=== PATIENT | male | born 1970 | race Caucasian/White ===

== ENCOUNTER → 2016-12-03 | Outpatient (CLI) | payer BC, OTHER ==
[~2016-12-03] VITALS: Ht 190.5 cm; Wt 291.1 kg
[~2016-12-03] MED LIST: ASCA500 PO; CHOLTAB3 PO
[2016-12-03 15:36] VITALS: BP 138/88; PULSE 77; Ht 190.5 cm; Wt 291.1 kg
== END | disposition home or self-care (01) ==
LOC: C.NEUR 15:10
PROVIDERS: ATTEND Internal Medicine Pulmonary Disease
DX: R06.83 Snoring (principal); R53.83 Other fatigue; R06.81 Apnea, not elsewhere classified

== ENCOUNTER → 2017-01-13 | Outpatient (CLI) | payer OTHER ==
--- NOTE | 2017-01-14 07:45 | PAP/PSG TECHNICIAN REPORT ---
[facility] Retail Performance Coach Polysomnogram Report Study name: None Report date: 01/14/2017 Study date: 01/13/2017 Referring Physician: SVETLANA QUINN M.D. Name: LILY TOMPKINS Interpreting Physician: Mohsen Robert M.D. Date of : 1970 Retail Performance Coach: JOCELYN FunezT. Sex: Male Age: 46 StudyType: PSG Weight: 291 lbs Height: 46 years, Height 6' 2" Neck Circum:18 inches BMI: 37.36 Medications: Vit-B12, Vit.D, Vit.C, Afrin nasal spray. Patient History 46 yr. old male in room 5, here for a split night sleep study. pt. states that his snoring disrupts spouse sleep. He states that he never feels rested. Patients has witnessed apnea's. Ess= 8, Neck = [address] Robert called and the order was changed to a split night study, due to patient never having a baseline study done. Parameters Monitored NPSG: E1-M2, E2-M1, Fp1-M2, Fp2-M1, F3-M2, F4-M2, F4-M1, C3-M2, C4-M2, C4-M1, O1-M2, O2-M2, O2-M1, T3-M2, T4-M1, P3-M2, P4-M1, CHIN1, CHIN2, HR, EKG, Legs, PFLOW, SNOR, FLOW, CFLOW, Tidal Volume, THOR, ABDO, SpO2, PLTH, CPRESS, ETCO2 Wave, ETCO2, pH Sleep Architecture Sleep Stages Time at Lights Off 9:40:33 PM STAGES Time (min.) TST (%) Time at Lights On 5:32:03 AM Wake 39.0 -- Total Recording Time (TRT) 472.50 min. N1 16.0 4 Total Sleep Period (TSP) 457.0 min. N2 308.0 71 Total Sleep Time (TST) 432.5min. N3 0.0 0 Awake Time 39.0 min. REM 108.5 25 Wake after Sleep Onset 24.5 min. Sleep Efficiency (SE) 92 % Sleep Onset Latency (ERA) 14.5 min. Number of Stage 1 Shifts None Awakenings 2 Stage Changes 14 Number of REM periods 3 REM 108.5 25 REM Latency 102.0 min. NREM 324.0 75 Body Position Analysis Supine Right Left Side Prone Vertical Total Sleep Time (min.) 5.6 123.9 308.6 432.50 0.0 0.4 Total Sleep Time (%) 0% 29% 71% 100 0% N/A% Total Sleep Time REM (min.) 0.0 26.0 82.5 None 0.0 0.0 Total Sleep Time NREM (min.) 0.0 97.9 226.1 None 0.0 0.0 Intermittent Wake (min.) 5.6 22.5 10.5 None 0.0 0.4 Total Sleep Period (%) 0% None None None None None Arousals Myoclonus (PLM) * Events Count Index Events Count Index Spontaneous 11 2 Events Awake (PLMW) 1 1.5 Respiratory 4 0.6 Events Asleep w/ Arousal (PLMA) 1 0.1 PLM 1 0 Events Asleep w/o Arousal (PLMS) 85 11.8 Snoring 12 2 Total Asleep 86 11.9 Total 28 4 Total 87 11 Respiratory Analysis * CA OA MA CH H RERA Total Count 0 1 0 0 52 1 53 Index 0.0 0.1 0.0 0 7.2 0 7.5 Mean Duration 0.0 11.7 0.0 0.00 22.4 11.0 22.0 Longest Duration 0.0 11.7 0.0 0.00 0.0 11.0 46.5 Respiratory Event Summary Total Supine ~Supine Right Left Prone REM NREM Apneas Count 1 N/A 1 0 1 N/A 1 0 Index 0.1 N/A 0 0.0 0.2 N/A 1 0 Hypopneas (4% Desat) Count 52 N/A 52 20 32 N/A 32 20 Index 7.2 N/A 7 9.7 6.2 N/A 17.7 3.7 Apneas & All Hypopneas Count 53 N/A 53 20 33 N/A 33 20 Index 7.4 N/A 7 10 6 N/A 18.2 3.7 Respiratory Events (Softwood Faller+All Hyp+RERA) Count 53 N/A 54 21 33 N/A 33 20 Index 7.5 N/A 7 10.2 6.4 N/A 18.2 3.9 Respiratory Related Arousal Count 4 N/A 4 3 1 N/A 4 0 Index 0.6 N/A 1 1 0 N/A 2 0 Snoring Analysis Supine Right Left Prone REM NREM Total Snore duration 153.2 min Snores count N/A 1,131 2,684 N/A 648 3,167 3,815 Snore mean duration 2.4 Sec Snores index N/A 548 522 N/A 358.3 586.5 529.2 TST with snoring (%) 35.4% SpO2 Analysis Total REM NREM Awake <50% 0.0 min. 0.0 min. 0.0 min. 0.0 min. 51 - 60% 0.0 min. 0.0 min. 0.0 min. 0.0 min. 61 - 70% 0.0 min. 0.0 min. 0.0 min. 0.0 min. 71 - 80% 0.0 min. 0.0 min. 0.0 min. 0.0 min. 81 - 90% 99.3 min. 19.3 min. 75.8 min. 4.3 min. 91 - 100% 367.0 min. 89.2 min. 248.0 min. 29.7 min. Average 92 92 91 92 Minimum SpO2 82 82 87 89 Desaturation Event Index 7.0 17.7 4.3 0.0 # Desat. Events below 89% 17 13 4 N/A Time(%) with Saturation below 89% 3.2 2.0 1.2 0.0 Time(min.) with Saturation below 89% 14.8 9.1 5.7 0.0 Heart Rate Analysis End Tidal CO2 Analysis Min (bpm) Max (bpm) Average (bpm) TSP (mins) % of TSP Awake 57 167 78 Above 55 mmHg 0.0 0.0 NREM 53 99 70 50-55 mmHg 5.9 1.4 REM 54 94 66 45-50 mmHg 426.6 98.6 Overall 53 99 69 40-45 mmHg 0.0 0.0 35-40 mmHg 0.0 0.0 30-35 mmHg 0.0 0.0 Average ETCO2 0.0 Supplemental O2 Values Minimum O2 level: None Value Start Time End Time Retail Performance Coach Comments PSG Study Mr. Tompkins slept in the right, left, positions. No cardiac arrhythmia or PLM's noted. No bruxism noted. Snoring was noted and scored as a 5 on a scale of 1 through 5. (0=no snoring, 5=snoring loud enough to be heard through a closed door or down the arias way) Mr. Tompkins awoke to use the restroom one time during the night. Mr. Tompkins stated, I did not sleep as well as I do when I am in my own bed. The final report will be interpreted and signed by a sleep physician. The completed physician report will then be placed in the patient medical record. Pt. didn't qualify for a split night study. Loud snoring was heard and mild francy was displayed. Therapy (cm H2O) 0 TIB (min.) 471.5 TST (min.) 432.5 Sleep Onset (min.) 14.5 REM Onset From Sleep (min.) 102.0 Sleep Efficiency % 92 Wakefulness (%) 8 Wakefulness (min.) 39.0 NREM 1 (%) 4 NREM 1 (min.) 16.0 NREM 2 (%) 71 NREM 2 (min.) 308.0 NREM 3 (%) 0 NREM 3 (min.) 0.0 REM (%) 25 REM (min.) 108.5 # Arousals 28 Arousal Index 4 # Snore 3,815 Snore Index 529.2 AHI 7.4 AHI Supine N/A AHI Non-Supine 7 NREM AHI 3.7 REM AHI 18.2 RDI 7.5 # Obstructive Apnea 1 # Central Apnea 0 # Mixed Apnea 0 # Hypopneas 52 RERAs 1 Total Respiratory Events 54 Time Below SpO2 89% (min.) 14.8 Mean NREM SpO2 (%) 91 Mean REM SpO2 (%) 92 Mean Sleep SpO2 (%) 92 Min NREM SpO2 (%) 87 Min REM SpO2 (%) 82 Position Supine (min.) 5.6 Position Non-supine (min.) 432.5 LM Index Sleep 11.9 LM Index NREM 10.0 LM Index REM 17.7 Mean Heart Rate (bpm) 69 Min Heart Rate (bpm) 53
--- NOTE | 2017-01-14 09:32 | POLYSOMNOGRAPH REPORT ---
CLINICAL DATA: 46-year-old male with BMI of 37.[address] Joe Connors and [facility] for [facility]. He has snoring which disrupts his spouse's sleep. He never feels rested. His has witnessed apneic episodes in the patient. His Maurice sleepiness score was 8/24. SLEEP ARCHITECTURE: Total recording time was 472.5 minutes. Total sleep period was 457 minutes. Total sleep time was 432.5 minutes divided between 324 minutes of non-REM sleep and 108.5 minutes of REM sleep. Sleep onset latency was 14.5 minutes. REM latency was 102 minutes. Sleep efficiency was 92%. Wake after sleep onset was 24.5 minutes. Sleep consisted of stage N1 4%, stage N2 71%, and REM 25%. AROUSAL DATA: 28 arousals were recorded for an index of 4 per hour. PLM DATA: 86 limb movements during sleep were noted for an index of 11.9 per hour with arousal index of 0.1 per hour. RESPIRATORY DATA: Mild sleep apnea was documented. The AHI was 7.4. There was 1 obstructive apneic episode, 11.7 seconds in duration. There were 52 hypopneas with mean duration of 22.4 seconds. OXIMETRY DATA: Mild nocturnal hypoxemia was seen. Oxygen hesham was 82% during REM. The mean saturation was 92%. Time below 89% was 14.8 minutes. EKG: Heart rates ranged from 53-99 beats per minute. No arrhythmias were noted. SENIOR SOFTWARE QUALITY ANALYST'S COMMENTS: The patient slept in the right and left positions. Snoring was severe rated 5 on a scale of 1-5. He did not meet split night criteria. IMPRESSION: Mild obstructive sleep apnea/hypopnea with an AHI of 7.4 with nocturnal hypoxemia. RECOMMENDATIONS: The patient may benefit from a repeat sleep study with CPAP, use of auto CPAP, or use of an oral appliance. Clinical correlation is needed. ALLI
== END | disposition home or self-care (01) ==
LOC: C.NEUR 21:00
PROVIDERS: ATTEND Internal Medicine Pulmonary Disease
DX: R53.83 Other fatigue (principal); R06.83 Snoring; R06.81 Apnea, not elsewhere classified